=== PATIENT | female | born 1990 | race Caucasian/White ===

== ENCOUNTER 2021-08-31 03:53 | Inpatient (IN) ==
[2021-08-31] MEDS ORDERED: miSOPROStoL 25 MCG TABLET PO PRN (04:00)
[2021-08-31] MEDS ORDERED: Naloxone 0.4 MG/ML INJ IVP PRN (04:00)
[2021-08-31] MEDS ORDERED: Ondansetron 4 MG/2 ML VIAL IVP PRN (04:00)
[2021-08-31] MEDS ORDERED: Famotidine 20 MG/2 ML VIAL IVP PRN (04:00)
[2021-08-31] MEDS ORDERED: Metoclopramide 10 MG/2 ML VIAL IVP PRN (04:00)
[2021-08-31] MEDS ORDERED: *HR* Nalbuphine 10 MG/ML AMPUL IV PRN (04:00)
[2021-08-31] MEDS ORDERED: Azithromycin 500 MG in 0.9 % Sodium Chloride 250 ML IVPB PRN (04:00)
[2021-08-31] MEDS ORDERED: Penicillin G Potassium 5,000,000 UNIT in 0.9 % Sodium Chloride Mini Bag 100 ML IVPB ONE (04:00)
[2021-08-31] MEDS: Ringers Solution, Lactated 1,000 ML IVC SCH ×3 (04:50→19:30)
[2021-08-31 05:03] LABS: Basophils % 0.2 %; Eosinophils # 0.1 K/mcL (0.0-0.6); Eosinophils % 0.5 %; Hematocrit 38.8 % (35.3-44.9); Hemoglobin 13.2 g/dL (11.5-15.4); Immature Granulocytes % 0.4 % (0-4); Lymphocytes # 2.2 K/mcL (0.6-4.6); Lymphocytes % 23.4 %; Mean Corpuscular Hemoglobin 30.3 pg (28.0-33.3); Mean Platelet Volume 9.9 fL (9.4-12.4); Monocytes # 0.8 K/mcL (0.0-1.3); Monocytes % 8.1 %; Neutrophils # 6.5 K/mcL (1.6-8.9); Platelet Count 285 K/mcL (140-400); Red Blood Count 4.36 M/mcL (3.82-4.97); Red Cell Distribution Width 13.2 % (11.5-14.5); Segmented Neutrophils % 67.4 %; White Blood Count 9.6 K/mcL (4.3-11.1)
[2021-08-31 05:12] LABS: Amphetamine Screen,Urine Negative ng/mL (Cutoff=1000); Barbiturate Screen,Urine Negative ng/mL (Cutoff=200); Benzodiazepines Screen,Urine Negative ng/mL (Cutoff=200); Cannabinoid Screen,Urine Negative ng/mL (Cutoff = 50); Cocaine Screen,Urine Negative ng/mL (Cutoff= 300); Opiate Screen,Urine Negative ng/mL (Cutoff=300); Phencyclidine Screen,Urine Negative ng/mL (Cutoff=25)
[2021-08-31 05:14] LABS: Creatinine,Urine 26 mg/dL
[2021-08-31 05:22] LABS: Alanine Aminotransferase 10 Units/L (7-52); Aspartate Amino Transferase 13 Units/L (13-39); BUN/Creatinine Ratio 12 (6-26); Blood Urea Nitrogen 7 mg/dL (6-20); Lactate Dehydrogenase 117 Units/L (140-271); Uric Acid 4.4 mg/dL (2.3-7.6); eGFR For African Americans > 60 (> 60); eGFR For Non-African Americans > 60 (> 60)
[2021-08-31 05:50] LABS: Influenza A PCR Negative (Negative); Influenza B PCR Negative (Negative); Resp. Syncytial Virus PCR Negative (Negative)
[2021-08-31 05:51] LABS: SARS-CoV-2 by PCR (In House) Negative (Negative)
[2021-08-31] MEDS ORDERED: EPHEDrine 50 MG/ML VIAL IVP PRN (06:24)
[2021-08-31] MEDS ORDERED: Oxytocin 30 UNIT/503 ML BAG IVC SCH (09:00)
[2021-08-31] MEDS: Penicillin G Potassium 2,500,000 UNIT/105 ML MLS IVPB SCH ×5 (09:09→21:39)
[2021-08-31] MEDS ORDERED: 0.9 % Sodium Chloride 500 ML ONE (14:32)
[2021-08-31] MEDS: Epidural Premix (fent/bupiv) 110 ML EP SCH ×3 (15:44→22:04)
[2021-09-01] MEDS: Penicillin G Potassium 2,500,000 UNIT/105 ML MLS IVPB SCH ×2 (03:26→07:28)
[2021-09-01] MEDS: Epidural Premix (fent/bupiv) 110 ML EP SCH (04:04)
[2021-09-01] MEDS: Ringers Solution, Lactated 1,000 ML IVC SCH (05:03)
[2021-09-01] MEDS ORDERED: OXYTOCIN/RINGERS LACTATE 10 UNIT/166.6 ML BAG IVC ONE (09:50)
[2021-09-01] MEDS ORDERED: Clindamycin 900 MG/50 ML 900 MG/50 ML IV.SOLN IVPB ONE (09:50)
[2021-09-01] MEDS ORDERED: Gentamicin 480 MG in 0.9 % Sodium Chloride 100 ML IVPB ONE (09:50)
[2021-09-01] MEDS ORDERED: Oxytocin 30 UNIT/503 ML BAG IVC SCH ×2 (10:00→14:14)
[2021-09-01] MEDS ORDERED: Ketorolac 30 MG/ML VIAL ONE (10:34)
[2021-09-01] MEDS ORDERED: Lidocaine/EPI 1:200k 2% PF 20 ML VIAL ONE (10:34)
[2021-09-01] MEDS ORDERED: Ondansetron 4 MG/2 ML VIAL ONE (10:34)
[2021-09-01] MEDS ORDERED: Acetaminophen IV 1,000 MG/100 ML BAG IVPB ONE (10:48)
[2021-09-01] MEDS ORDERED: *HR* Morphine Sulfate/PF 10 MG/10 ML AMPUL ONE (11:02)
[2021-09-01] MEDS ORDERED: Ringers Solution, Lactated 1,000 ML ONE (11:25)
[2021-09-01] MEDS ORDERED: *HR* OxyCODONE Immed Rel 5 MG TABLET PO PRN (14:14)
[2021-09-01] MEDS ORDERED: Rho Immune Globulin 1,500 UNIT SYRINGE IM ONE (14:14)
[2021-09-01] MEDS ORDERED: Ondansetron 4 MG/2 ML VIAL IVP PRN (14:14)
[2021-09-01] MEDS ORDERED: Metoclopramide 10 MG/2 ML VIAL IVP PRN (14:14)
[2021-09-01] MEDS: cephALEXin 500 MG CAPSULE PO SCH ×2 (15:22→21:54)
[2021-09-01] MEDS: Ibuprofen 600 MG TABLET PO SCH ×2 (15:22→21:54)
[2021-09-01] MEDS: metroNIDAZOLE 500 MG TABLET PO SCH ×2 (15:22→21:54)
[2021-09-01] MEDS: Acetaminophen 325 MG TABLET PO SCH ×2 (15:23→21:54)
[2021-09-01] MEDS: Simethicone 80 MG TAB.CHEW PO PRN (21:54)
[2021-09-02] MEDS: *HR* Enoxaparin 80 MG/0.8 ML SYRINGE SQ SCH ×3 (00:22→20:20)
[2021-09-02] MEDS: Acetaminophen 325 MG TABLET PO SCH ×3 (04:11→17:40)
[2021-09-02] MEDS: Ibuprofen 600 MG TABLET PO SCH ×3 (04:12→17:40)
[2021-09-02] MEDS: metroNIDAZOLE 500 MG TABLET PO SCH ×3 (08:10→20:18)
[2021-09-02] MEDS: cephALEXin 500 MG CAPSULE PO SCH ×3 (08:10→20:18)
[2021-09-02] MEDS: Prenatal Vit/FA 1 EACH TABLET PO SCH (08:11)
[2021-09-02 18:35] VITALS: O2SAT 98
[2021-09-02] MEDS: Simethicone 80 MG TAB.CHEW PO PRN (20:18)
[2021-09-03] MEDS: Acetaminophen 325 MG TABLET PO SCH ×5 (00:15→13:55)
[2021-09-03] MEDS: Ibuprofen 600 MG TABLET PO SCH ×4 (00:15→13:55)
[2021-09-03 07:03] VITALS: BP 124/74; PULSE 63; TEMP 97.9
[2021-09-03] MEDS: cephALEXin 500 MG CAPSULE PO SCH (09:20)
[2021-09-03] MEDS: Prenatal Vit/FA 1 EACH TABLET PO SCH (09:20)
[2021-09-03] MEDS: *HR* Enoxaparin 80 MG/0.8 ML SYRINGE SQ SCH (09:20)
[2021-09-03] MEDS: metroNIDAZOLE 500 MG TABLET PO SCH (09:20)
== END 2021-09-03 15:47 | disposition home or self-care (01) | DRG 787 ==
LOC: 1NENULAB 03:53 → 1NENUOBS 09-01 14:13
PROVIDERS: ADMIT Obstetrics & Gynecology; ATTEND Obstetrics & Gynecology